=== PATIENT | male | born 1975 | race Caucasian/White ===

== ENCOUNTER 2019-03-25 13:41 | Emergency (ER) | payer OTHER ==
[~2019-03-25] VITALS: Ht 180.3 cm; Wt 93.9 kg
[2019-03-25] MEDS ORDERED: Percocet 7.5-31 EACH PO (15:57)
[2019-03-25] MEDS ORDERED: Augmentin 875-1 EACH PO (15:57)
[2019-03-25] MEDS ORDERED: CYCL10 PO (16:26)
== END 2019-03-25 17:15 | disposition home or self-care (01) ==
LOC: ER 13:41
DX: S02.82XA Fracture of other specified skull and facial bones, left side, initial encounter for closed fracture (principal); S01.112A Laceration without foreign body of left eyelid and periocular area, initial encounter; S01.331A Puncture wound without foreign body of right ear, initial encounter; H11.32 Conjunctival hemorrhage, left eye; Z79.899 Other long term (current) drug therapy; V69.9XXA Occupant (driver) (passenger) of heavy transport vehicle injured in unspecified traffic accident, initial encounter
CPT/HCPCS: 12054; 70450; 70486; 71260; 72125; 74177; 90471; 90714; 99284-25; Q9967